=== PATIENT | male | born 1960 | race Caucasian/White ===

== ENCOUNTER 2016-11-18 14:37 | Emergency (ER) | payer OTHER ==
[~2016-11-18] VITALS: Ht 167.6 cm; Wt 81.8 kg
[~2016-11-18 14:37] MED LIST: IBUP-2071 PO
[2016-11-18 15:32] LABS: BASOPHILS % (AUTO) 0.2 % (0.0-2.0); EOSINOPHILS % (AUTO) 0 % (1.0-6.0); HEMATOCRIT 44.2 % (41-53); HEMOGLOBIN 15.2 g/dL (13.5-17.5); LYMPHOCYTES # (AUTO) 1.5 K/uL (1.0-4.8); LYMPHOCYTES % (AUTO) 15.7 % (22.0-44.0); MEAN CORPUSCULAR HEMOGLOBIN 31.4 pg (26.0-34.0); MEAN CORPUSCULAR HGB CONC 34.4 G/dL (31.0-37.0); MEAN CORPUSCULAR VOLUME 91 fL (80-100); MONOCYTES # (AUTO) 0.4 K/uL (0.1-1.0); MONOCYTES % (AUTO) 4.3 % (2.0-9.0); NEUTROPHILS # (AUTO) 7.4 K/uL (1.8-7.7); NEUTROPHILS % (AUTO) 79.8 % (40.0-70.0); PLATELET COUNT (AUTO) 248 K/uL (150-450); RED BLOOD CELL COUNT(AUTO) 4.84 MIL/uL (4.50-5.90); RED CELL DISTRIBUTION WIDTH 12.8 % (11.5-14.5); WHITE BLOOD COUNT (AUTO) 9.2 K/uL (4.5-11.0)
[2016-11-18 15:38] LABS: ANION GAP 13 mmol/L (8-16); CALCIUM, TOTAL 9.3 mg/dL (8.8-10.5); CARBON DIOXIDE 24 mmol/L (22-29); CHLORIDE 103 mmol/L (98-107); CREATININE 0.96 mg/dL (0.60-1.30); GLOMERULAR FILTR. RATE CALC > 60 mL/min (>60); POTASSIUM 3.8 mmol/L (3.5-5.1); SODIUM SERUM 140 mmol/L (136-145); UREA NITROGEN, BLOOD 13 mg/dL (7-18)
[2016-11-18 15:44] LABS: ALBUMIN 4.2 g/dL (3.4-5.0); ASPARTATE AMINOTRANSFERASE 21 U/L (15-37); BILIRUBIN,TOTAL 0.6 mg/dL (0.1-1.0); CREATINE KINASE, TOTAL 112 U/L (39-308); TOTAL PROTEIN, SERUM 8.1 g/dL (6.4-8.2)
[2016-11-18 15:51] LABS: B-TYPE NATRIURETIC PEPTIDE 18 pg/mL (0-100)
[2016-11-18 15:54] LABS: ALANINE AMINOTRANSFERASE 36 U/L (12-78)
[2016-11-18 15:57] LABS: PROTHROMBIN TIME 10.7 SEC (9.4-11.6)
[2016-11-18 16:33] LABS: CREATINE KINASE MB 1.2 ng/mL (0-5); THYROID STIMULATING HORMONE 1.04 uIU/mL (0.36-3.74)
[2016-11-18] MEDS ORDERED: LORazepam 1 MG TABLET PO ONE (17:00)
[2016-11-18 17:48] LABS: APPEARANCE,URINE CLEAR (CLEAR); GLUCOSE, URINE (UA) NEGATIVE (NEGATIVE); KETONES,URINE TRACE mg/dL (NEGATIVE); LEUKOCYTE ESTERASE ,URINE NEGATIVE (NEGATIVE); OCCULT BLOOD,URINE NEGATIVE (NEGATIVE); PROTEIN,URINE NEGATIVE (NEGATIVE)
[2016-11-18 17:49] LABS: ADD UA MICROSCOPIC NO
[2016-11-18 19:22] VITALS: BP 142/81
== END 2016-11-18 19:34 | disposition home or self-care (01) ==
LOC: EMS 14:41
DX: R07.89 Other chest pain (principal); R53.1 Weakness; F41.9 Anxiety disorder, unspecified; F32.9 Major depressive disorder, single episode, unspecified
CPT/HCPCS: 84443; 93005; 99285